=== PATIENT | male | born 1950 | race Caucasian/White ===

== ENCOUNTER 2018-03-18 02:44 | Emergency (ER) | payer MEDICARE, BC ==
--- NOTE | 2018-03-18 03:23 | ED Physician Documentation ---
General Adult - HISTORIAN Historian: patient - HPI Chief Complaint: Syncope Additional Information: Intro self as PURCHASING ANALYST. pt presents to the ED via POV with son c/o 10 second episode of syncope after coughing traveling on the way to [place]. pt then became diaphoretic and nauseated. pt then returned to normal mentation. pt here denies chest pain or any symptoms. pt has a hx of ME x 2, Triple bypass, DM2. pt denies current chest pain, dyspnea, syncope/near syncope, headache, dizziness, visual disturbances, n/v/d, fever, rash, sick contacts, dysuria, trauma. melena or hematochezia, change in bowel or bladder function. anxiety or depression. ROS Negative unless otherwise specified. Onset: other (Just MIDWIFE) - ROS CONST: no problems EYES/ENT: none CVS/RESP: none GI/: none - PAST HX Past History: AMI Other History: diabetes Type 2 Allergies/Adverse Reactions: Allergies Allergy/AdvReac Type Severity Reaction Status Date / Time No Known Allergies Allergy Verified 03/18/18 03:50 - SOCIAL HX Smoking History: non-smoker Alcohol Use: none Drug Use: none - FAMILY HX Family History: No - REVIEWED ASSESSMENTS Nursing Assessment Reviewed: Yes Vitals Reviewed: Yes Progress - EKG/XRAY/CT EKG: NSR (Rate 79. normal intervals, axis, QRS. ), no ST T wave changes ED Results Lab/Radiology - Radiology Radiology Impressions: Portable chest Clinical history: Syncopal episode. Findings: Examination of the chest single portable AP view with no prior films for comparison demonstrates mild elevation right hemidiaphragm. The lungs are clear. Cardiovascular and mediastinal silhouettes are within normal limits. There are multiple sternotomy wires. Impression: 1. Postoperative chest. 2. Elevated right hemidiaphragm. Electronically signed on Mar 18, 2018 3:31:21 AM CDT by: Dionicio Traore - Orders Orders: ED Orders Category Date Time Status Continuous EKG monitoring Q30M Care 03/18/18 03:07 Active Continuous Pulse Oximetry Q30M Care 03/18/18 03:[address] IV Lock 1T Care 03/18/18 03:07 Active CHEST 1VIEW [RAD] Stat Exams 03/18/18 Ordered CBC/PLATELET/DIFF Stat Lab 03/18/18 03:05 Received CMP Routine Lab 03/18/18 03:05 Received TROPONIN I (cTnI) Stat Lab 03/18/18 03:05 Received Aspirin Med 03/18/18 03:06 Discontinued 325 mg PO NOW ONE EKG WITH COMPARISON Stat Ther 03/18/18 03:07 Ordered General Adult Physical Exam - PHYSICAL EXAM GENERAL APPEARANCE: no distress EENT: eye inspection normal, ENT inspection normal, pharynx normal, no signs of dehydration, KIMBERLY, no nystagmus, TM's nml NECK: normal inspection, thyroid normal RESPIRATORY: no resp distress, chest non-tender, breath sounds normal CVS: reg rate & rhythm, heart sounds normal, equal pulses, no murmur, no gallop, PMI nml, no JVD, no friction rub, 24 ABDOMEN: soft, no organomegaly, normal bowel sounds, no abdominal bruit, no distension BACK: normal inspection, no CVA tenderness SKIN: normal color, warm/dry, NR, INT, PAL, DR EXTREMITIES: non-tender, normal range of motion, no evidence of injury, no edema, J, PURCHASING ANALYST NEURO: oriented X3, CN's nml as tested, motor nml, sensation nml, mood/affect nml Discharge Clincal Impression: Orthostatic dizziness Syncope Qualifiers: Syncope type: unspecified Qualified Code(s): R55 - Syncope and collapse Additional Instructions: we have discussed being admitted/transferred for further cardiology evaluation and monitoring due to your high risk factors for cardiac events. I explained the risks including worsening condition and . understanding was verbalized and you agreed to seek emergency care should your condition worsen after you leave this hospital. Against medical advice form signed by pt. Monitor and seek medical care immediately for any worsening symptoms: severe pain, chest pain, shortness of breath, feeling faint or passing out or any concern. increase fluids rest get up slowly from sitting. UNDERSTAND THAT THIS IS AN EMERGENCY EVALUATION FOR YOUR COMPLAINT AND BY NATURE IS LIMITED AND NOT A SUBSTITUTE FOR ONGOING MEDICAL CARE. EVEN THOUGH TEST RESULTS AND TREATMENT PLAN WERE EXPLAINED THERE MAY BE A NEED FOR ADDITIONAL TESTING TO FULLY DETERMINE THE EXTENT OF YOUR ILLNESS/INJURY/OR CONCERN SO YOU SHOULD CONTACT AND OR ESTABLISH WITH A PRIMARY CARE PROVIDER (OR REFERRAL DOCTOR IF APPLICABLE) FOR AN APPOINTMENT SOON POSSIBLE. Condition: Good Disposition: 01 HOME, SELF-CARE Decision to Admit: NO Date of Decison to Admit: 03/18/18 Decision Time: 04:31
[2018-03-18 03:29] LABS: BASOPHILS % 0.5 (0.0-1.5); EOSINOPHILS % 1.8 % (0.0-6.8); MEAN CORPUSCULAR HEMOGLOBIN 31.5 pg (28.0-34.0); MONOCYTES % 7.5 % (0.0-11.0); NEUTROPHILS # 4.6 # k/uL (1.4-7.7)
--- NOTE | 2018-03-18 03:39 | Diagnostic Imaging Report ---
YANIV VILLAGRAN [facility] [id number] [id number] Report Submission Date: Mar 18, 2018 3:31:21 AM CDT Patient Study Name: LANA GONSALEZ Date: Mar 18, 2018 3:12:01 AM CDT Modality Type: DX Gender: M Description: CHEST : 52 [facility] Physician: YANIV VILLAGRAN Portable chest Clinical history: Syncopal episode. Findings: Examination of the chest single portable AP view with no prior films for comparison demonstrates mild elevation right hemidiaphragm. The lungs are clear. Cardiovascular and mediastinal silhouettes are within normal limits. There are multiple sternotomy wires. Impression: 1. Postoperative chest. 2. Elevated right hemidiaphragm. Electronically signed on Mar 18, 2018 3:31:21 AM CDT by: Dionicio HENRIQUEZ
[2018-03-18 03:41] LABS: eGFR (Non-African) > 60
[2018-03-18] MEDS: ASPIRIN 325 MG TABLET PO ONE (03:50)
[2018-03-18] MEDS: 0.9 % SODIUM CHLORIDE 1,000 ML IV ONE (04:52)
[2018-03-18 05:47] VITALS: BP 153/76
== END 2018-03-18 05:44 | disposition home or self-care (01) ==
LOC: ED 02:44
DX: I95.1 Orthostatic hypotension (principal); R55 Syncope and collapse; Z86.79 Personal history of other diseases of the circulatory system; Z53.9 Procedure and treatment not carried out, unspecified reason
CPT/HCPCS: 71045; 80053; 84484; 85025; 93005; A9270; J7030; 96365; 99284; S1016